=== PATIENT | female | born 1960 | race Caucasian/White ===

== ENCOUNTER 2024-06-09 13:35 | Outpatient (AMB) | payer MEDICARE, MEDICAID, SELFPAY ==
--- NOTE | 2024-06-09 13:58 | PD.ORTHCLVIS ---
Vital signs 06/09/24 13:59 Height 1.68 m Height Method Stated Weight 65.5 kg Weight Measurement Method Standing Scale BMI 23.2 Respiration 18 Temp 97.0 F Temp Source Temporal Artery Scan Med/Allergies Allergies & Medications Allergies triamcinolone [From Kenalog] Allergy (Severe, Verified 06/09/24 14:00) Palpitations Medication Reconciliation acetaminophen 500 mg tablet 1,000 mg PO Q8H PRN Pain 04/09/24 [History Confirmed 06/09/24] atorvastatin 20 mg tablet 20 mg PO QPM 04/09/24 [History Confirmed 06/09/24] folic acid 1 mg tablet 1 mg PO BID 04/09/24 [History Confirmed 06/09/24] magnesium citrate 100 mg tablet 400 mg PO HS 04/09/24 [History Confirmed 06/09/24] metoprolol succinate 50 mg capsule sprinkle, ext. release 24 hr 50 mg PO QDAY 04/09/24 [History Confirmed 06/09/24] prednisone 1 mg tablet 2 mg PO QDAY 04/09/24 [History Confirmed 06/09/24] acetaminophen 500 mg tablet (Acetaminophen Extra Strength) 1,000 mg (2 x 500 mg) PO Q6H PRN pain #90 tabs 04/13/24 [Rx Confirmed 06/09/24] aspirin 81 mg tablet,delayed release 81 mg PO BID #60 tabs 04/13/24 [Rx Confirmed 06/09/24] doxycycline hyclate 100 mg tablet 100 mg PO BID #14 tabs 04/13/24 [Rx Confirmed 06/09/24] oxycodone 5 mg tablet 5 mg PO Q6H PRN pain #28 tabs 04/13/24 [Rx Confirmed 06/09/24] pregabalin 75 mg capsule 75 mg PO BID #45 caps 04/13/24 [Rx Confirmed 06/09/24] sennosides 8.6 mg-docusate sodium 50 mg tablet (Senna-S) 1 tab-cap PO QDAY #30 tabs 04/13/24 [Rx Confirmed 06/09/24] cyclobenzaprine 5 mg tablet 5 mg PO QHS PRN muscle spasm #30 tabs 05/01/24 [Rx Confirmed 06/09/24] certolizumab pegol 200 mg/mL subcutaneous syringe kit (Cimzia) mg subcut 06/09/24 [History Confirmed 06/09/24] oxycodone 5 mg tablet 5 mg PO Q6H PRN pain #28 tabs 06/09/24 [Rx] Subjective Visit Visit for: follow up visit Immunization / Flu Flu Vaccine in the Last 12 Months: No Flu Vaccine Exclusion Criteria: No Exclusion Criteria History of Present Illness Chief complaint: FOLLOW UP ON TKA Patient is 6-weeks status post right Total knee replacement. She is doing well. She has minimal pain. The incision is completely healed. She is doing well. Personal History Occupation: DISABLED Pain Pain level (0-10): 7 Pain duration: COMES AND GOES Pain quality: sharp, dull and aching Ambulatory data Ambulatory device: none Treatments Improvement with previous injections: No Improvement with PT: No Improvement with NSAIDS: n/a Review of Systems Review of Systems: All systems negative unless otherwise noted in HPI. Exam Exam Patient is in no acute distress and is cooperative with the examination today. Patient has a normal mood and affect. Breathing is nonlabored. In no respiratory distress. Bilateral extremities were evaluated and demonstrates sensation intact to light touch. Palpable pedal pulses are present. No significant edema is present. Right knee incisions clean dry intact. Range of motion is 0 to 95 degrees The left knee has ROM from 5-80 degrees. It is very tender medially and laterally. The knee feels stable varus valgus stress as well as AP translation X-rays of the left knee demonstrates complete obliteration of the joint space both medial and laterally. She does have varus deformity. There are significant osteophytes. Assessment and Plan Problem List (1) Bilateral knee pain: Status: Acute Plan: Patient is doing well status post right total knee replacement. We will have her follow-up in approximately 4 weeks. (2) Rheumatoid arthritis flare: Status: Acute Plan: Patient is a 64-year-old female with bilateral knee rheumatoid arthritis status post right total knee replacement. Her left knee is actually impacting her quality life and happiness. She would like to get her left knee replaced as she did well with her right. We would have to Time the surgery around her infusion just like we did last time. I do think that surgery is a reasonable option as she is failed anti-inflammatories, rheumatoid medications, and injections The nature and purpose of the total knee replacement, alternative method(s) of treatment, the material risks involved, and the possibility of complications were fully explained to the patient. The patient does NOT have any of the following contraindications to TKA: - Active infection of the knee joint, OR - Active systemic bacteremia, OR - Active skin infection or open wound at surgical site, OR - Neuropathic arthritis, OR - Severe, rapidly progressive neurological disease, OR - Severe medical condition that makes risks of surgery outweigh the potential benefit The patient was told the most common risks and complications associated with a total knee replacement include, but are not limited to: blood clots in the leg, fatal pulmonary embolism, dislocation of the prosthesis, intraoperative and postoperative fractures of the femur or tibia, infection, failure of the prosthesis or grafting materials, complications from anesthesia, reactions to blood transfusions, postoperative leg length inequality, instability of the knee replacement, nerve damage or injury, vascular injury, delayed wound healing, infection, other injury or even . In addition, there are risks associated with anesthesia given during this operation. Also, the patient was told that after undergoing a total knee replacement there may still be persistent pain or disability. The patient was informed that the success of this operation in part depends upon the mechanical devices which are going to be implanted and that these devices can fail or malfunction, and may need to be repaired or replaced and there are no guarantees as to the longevity of this device or its parts and that it or its parts could fail prematurely. The patient was also notified that during the course of surgery, there may be a need to use bone graft from donors, and that any bone graft used will be carefully screened for communicable diseases, including AIDS, hepatitis, Deshaun-Creutzfeldt, or other diseases, but despite the screening procedures, there is a small chance that they could contract one of these diseases. Finally, the patient was asked to follow completely and fully with all advice and recommended treatments, and that recovery and ultimate outcome are affected by their compliance with recommended treatment. We discussed the risks, benefits and treatment alternatives, and the patient is interested in proceeding with surgery. We will try to set this up as expeditiously as possible. Advanced Care Planning Discussion Advance care planning discussed with:: patient Past Medical History Past Medical History Have you ever been diagnosed with any of the following: Neurological Problems Seizures: No Cardiology Problems Myocardial Infarction: No Cardiac Arrhythmia: No Atrial Fibrillation: No Angina: No Heart Murmur: No Coronary Artery Disease: No Atherosclerotic Heart Disease: No Peripheral Vascular Disease: No Hypercholesterolemia: No Aneurysm: No Congestive Heart Failure: No Congenital Heart Disease: No Valvular Heart Disease: No Rheumatic Fever: No Cardiomyopathy: No Edema: No Pericarditis: No Cellulitis: No Deep Vein Thrombosis: No Hypertension: No Hypotension: No Varicose Veins: No Respiratory Problems Chronic Obstructive Pulmonary Disease (COPD): No Smoking: No Smoking Exposure: No Stomache/Intestinal Problems Cirrhosis: No Pancreatitis: No Celiac Disease: No Gall Bladder Disease: No Gastrointestinal Bleed: No Esophageal Varices: No Dowling's Esophagus: No Colitis: No Ulcerative Colitis: No Diverticulitis: No Diverticulosis: No Ulcer: No Irritable Bowel: No Crohn's Disease: No Obstructive Bowel: No Hiatal Hernia: No Hemorrhoids: No Gastroesophageal Reflux Disease: No Obesity: No Genital/Urinary Problems Renal Disease: No Reproductive Problems Previous Pregnancies: Yes Musculoskeletal Problems Rheumatoid Arthritis: Yes Carpal Tunnel Syndrome: No Head,Eye,Nose,Throat Problems Cataracts: No Endocrine Problems Diabetes Mellitus Type 1: No Diabetes Mellitus Type 2: No Hypoglycemia: No [place]'s Syndrome: No [place]'s Disease: No Hyperthyroidism: No Hypothyroidism: No Parathyroid Disease: No Pituitary Disease: No Systemic Lupus Erythematosus: No Syndrome of Inappropriate Antidiuretic Hormone: No Adrenal Disease: No Graves' Disease: No Blood Problems Anemia: No Leukemia: No Hemophilia: No Thalassemia: No Sickle Cell Disease: No Clotting Problems: No Psychologic Problems Anxiety: Yes Other Problems Hospitalization: No Shingles: No Falls: No Blood Transfusions: No Blood Transfusion Reaction: No Anesthesia Reactions: No Organ Transplant: No Chemotherapy: No Radiation Therapy: No Hyperbaric Therapy: No MRSA: No VRSA: No Vancomycin-Resistant Enterococci: No Chicken Pox: Yes Cancer: Yes Surgical History Hysterectomy: No Pacemaker: No Thyroidectomy: No
[2024-06-09 13:59] VITALS: RESP 18; TEMP 36.1; BMI 23.2
== END 2024-06-09 14:18 | disposition home or self-care (01) ==
LOC: HODSRG 13:35
PROVIDERS: PCP Internal Medicine Rheumatology; Referring Provider Internal Medicine Rheumatology; Supervising Provider Orthopaedic Surgery Adult Reconstructive Orthopaedic Surgery; Visit Provider Orthopaedic Surgery Adult Reconstructive Orthopaedic Surgery
DX: M25.562 Pain in left knee (principal); M25.561 Pain in right knee; Z96.651 Presence of right artificial knee joint; M06.862 Other specified rheumatoid arthritis, left knee; M06.861 Other specified rheumatoid arthritis, right knee
CPT/HCPCS: 99213; G0463

== ENCOUNTER 2024-07-03 13:37 | Outpatient (AMB) | payer MEDICARE, MEDICAID, SELFPAY ==
[2024-07-03 14:12] VITALS: BP 142/78; PULSE 74; RESP 18; TEMP 35.8; O2SAT 97; BMI 24.0
--- NOTE | 2024-07-03 14:12 | ORTHONT_ITS ---
Vital signs 07/03/24 14:12 Height 1.68 m Height Method Stated Weight 67.784 kg Weight Measurement Method Standing Scale BMI 24.0 BP 142/78 H Blood Pressure Source Automatic Cuff Blood Pressure Location Right Upper Arm Position Sitting Respiration 18 Pulse 74 Pulse Source Monitor Temp 96.5 F L Temp Source Temporal Artery Scan Pulse Oximetry (%) 97 Oxygen Delivery Method Room Air Med/Allergies Allergies & Medications Allergies triamcinolone [From Kenalog] Allergy (Severe, Verified 07/03/24 14:13) Palpitations Medication Reconciliation acetaminophen 500 mg tablet 1,000 mg PO Q8H PRN Pain 04/09/24 [History Confirmed 07/03/24] atorvastatin 20 mg tablet 20 mg PO QPM 04/09/24 [History Confirmed 07/03/24] folic acid 1 mg tablet 1 mg PO BID 04/09/24 [History Confirmed 07/03/24] magnesium citrate 100 mg tablet 400 mg PO HS 04/09/24 [History Confirmed 07/03/24] metoprolol succinate 50 mg capsule sprinkle, ext. release 24 hr 50 mg PO QDAY 04/09/24 [History Confirmed 07/03/24] prednisone 1 mg tablet 2 mg PO QDAY 04/09/24 [History Confirmed 07/03/24] acetaminophen 500 mg tablet (Acetaminophen Extra Strength) 1,000 mg (2 x 500 mg) PO Q6H PRN pain #90 tabs 04/13/24 [Rx Confirmed 07/03/24] aspirin 81 mg tablet,delayed release 81 mg PO BID #60 tabs 04/13/24 [Rx Confirmed 07/03/24] doxycycline hyclate 100 mg tablet 100 mg PO BID #14 tabs 04/13/24 [Rx Confirmed 07/03/24] oxycodone 5 mg tablet 5 mg PO Q6H PRN pain #28 tabs 04/13/24 [Rx Confirmed 07/03/24] pregabalin 75 mg capsule 75 mg PO BID #45 caps 04/13/24 [Rx Confirmed 07/03/24] sennosides 8.6 mg-docusate sodium 50 mg tablet (Senna-S) 1 tab-cap PO QDAY #30 tabs 04/13/24 [Rx Confirmed 07/03/24] cyclobenzaprine 5 mg tablet 5 mg PO QHS PRN muscle spasm #30 tabs 05/01/24 [Rx Confirmed 07/03/24] certolizumab pegol 200 mg/mL subcutaneous syringe kit (Cimzia) mg subcut 06/09/24 [History Confirmed 07/03/24] oxycodone 5 mg tablet 5 mg PO Q6H PRN pain #28 tabs 06/09/24 [Rx Confirmed 07/03/24] Subjective Visit Visit for: follow up visit Immunization / Flu Flu Vaccine in the Last 12 Months: No Flu Vaccine Exclusion Criteria: No Exclusion Criteria History of Present Illness Chief complaint: FOLLOW UP ON TKA Patient is 6-weeks status post right Total knee replacement. She is doing well. She has minimal pain. The incision is completely healed. She is doing well. Personal History Occupation: DISABLED Pain Pain level (0-10): 8 Pain duration: CONSTANT Pain location: inside (medial) Pain quality: aching Pain timing: night and increases with activity Ambulatory data Ambulatory device: none Treatments Improvement with previous injections: No Improvement with PT: No Improvement with NSAIDS: no Review of Systems Review of Systems: All systems negative unless otherwise noted in HPI. Exam Exam Patient is in no acute distress and is cooperative with the examination today. Patient has a normal mood and affect. Breathing is nonlabored. In no respiratory distress. Bilateral extremities were evaluated and demonstrates sensation intact to light touch. Palpable pedal pulses are present. No significant edema is present. Right knee incisions clean dry intact. Range of motion is 0 to 95 degrees The left knee has ROM from 5-80 degrees. It is very tender medially and laterally. The knee feels stable varus valgus stress as well as AP translation X-rays of the left knee demonstrates complete obliteration of the joint space both medial and laterally. She does have varus deformity. There are sign ificant osteophytes. Assessment and Plan Problem List (1) Bilateral knee pain: Status: Acute Plan: Patient is doing well status post right total knee replacement. We will have her follow-up in approximately 4 weeks. (2) Rheumatoid arthritis flare: Status: Acute Plan: Patient is a 64-year-old female with bilateral knee rheumatoid arthritis status post right total knee replacement. Her left knee is actually impacting her quality life and happiness. She would like to get her left knee replaced as she did well with her right. We would have to Time the surgery around her infusion just like we did last time. I do think that surgery is a reasonable option as she is failed anti-inflammatories, rheumatoid medications, and injections The nature and purpose of the total knee replacement, alternative method(s) of treatment, the material risks involved, and the possibility of complications were fully explained to the patient. The patient does NOT have any of the following contraindications to TKA: - Active infection of the knee joint, OR - Active systemic bacteremia, OR - Active skin infection or open wound at surgical site, OR - Neuropathic arthritis, OR - Severe, rapidly progressive neurological disease, OR - Severe medical condition that makes risks of surgery outweigh the potential benefit The patient was told the most common risks and complications associated with a total knee replacement include, but are not limited to: blood clots in the leg, fatal pulmonary embolism, dislocation of the prosthesis, intraoperative and postoperative fractures of the femur or tibia, infection, failure of the prosthesis or grafting materials, complications from anesthesia, reactions to blood transfusions, postoperative leg length inequality, instability of the knee replacement, nerve damage or injury, vascular injury, delayed wound healing, infection, other injury or even . In addition, there are risks associated with anesthesia given during this operation. Also, the patient was told that after undergoing a total knee replacement there may still be persistent pain or disability. The patient was informed that the success of this operation in part depends upon the mechanical devices which are going to be implanted and that these devices can fail or malfunction, and may need to be repaired or replaced and there are no guarantees as to the longevity of this device or its parts and that it or its parts could fail prematurely. The patient was also notified that during the course of surgery, there may be a need to use bone graft from donors, and that any bone graft used will be carefully screened for communicable diseases, including AIDS, hepatitis, Deshaun-Creutzfeldt, or other diseases, but despite the screening procedures, there is a small chance that they could contract one of these diseases. Finally, the patient was asked to follow completely and fully with all advice and recommended treatments, and that recovery and ultimate outcome are affected by their compliance with recommended treatment. We discussed the risks, benefits and treatment alternatives, and the patient is interested in proceeding with surgery. We will try to set this up as expeditiously as possible. Advanced Care Planning Discussion Advance care planning discussed with:: patient Office Procedures GNS Level of Care Nursing/Assessment Patient Status: Established Patient Nursing Assessment/Reassesment: Medication Reconciliation, Update PMH in EMR and Vital Signs Coordination of Care: Complex Care and Chronic Disease 1-5, Education Complex Pt/Fam, Consent,records obtained, informed consent, 1 Ins Authorization, Results/Orders obtained and Staff clarify orders Established Patient Charge Established Patient Point Assignment: 110 Established Patient Point Charge: Level 3 (80-115) Past Medical History Past Medical History Have you ever been diagnosed with any of the following: Neurological Problems Seizures: No Cardiology Problems Myocardial Infarction: No Cardiac Arrhythmia: No Atrial Fibrillation: No Angina: No Heart Murmur: No Coronary Artery Disease: No Atherosclerotic Heart Disease: No Peripheral Vascular Disease: No Hypercholesterolemia: No Aneurysm: No Congestive Heart Failure: No Congenital Heart Disease: No Valvular Heart Disease: No Rheumatic Fever: No Cardiomyopathy: No Edema: No Pericarditis: No Cellulitis: No Deep Vein Thrombosis: No Hypertension: No Hypotension: No Varicose Veins: No Respiratory Problems Chronic Obstructive Pulmonary Disease (COPD): No Smoking: No Smoking Exposure: No Stomache/Intestinal Problems Cirrhosis: No Pancreatitis: No Celiac Disease: No Gall Bladder Disease: No Gastrointestinal Bleed: No Esophageal Varices: No Dowling's Esophagus: No Colitis: No Ulcerative Colitis: No Diverticulitis: No Diverticulosis: No Ulcer: No Irritable Bowel: No Crohn's Disease: No Obstructive Bowel: No Hiatal Hernia: No Hemorrhoids: No Gastroesophageal Reflux Disease: No Obesity: No Genital/Urinary Problems Renal Disease: No Reproductive Problems Previous Pregnancies: Yes Musculoskeletal Problems Rheumatoid Arthritis: Yes Carpal Tunnel Syndrome: No Head,Eye,Nose,Throat Problems Cataracts: No Endocrine Problems Diabetes Mellitus Type 1: No Diabetes Mellitus Type 2: No Hypoglycemia: No [place]'s Syndrome: No [place]'s Disease: No Hyperthyroidism: No Hypothyroidism: No Parathyroid Disease: No Pituitary Disease: No Systemic Lupus Erythematosus: No Syndrome of Inappropriate Antidiuretic Hormone: No Adrenal Disease: No Graves' Disease: No Blood Problems Anemia: No Leukemia: No Hemophilia: No Thalassemia: No Sickle Cell Disease: No Clotting Problems: No Psychologic Problems Anxiety: Yes Other Problems Hospitalization: No Shingles: No Falls: No Blood Transfusions: No Blood Transfusion Reaction: No Anesthesia Reactions: No Organ Transplant: No Chemotherapy: No Radiation Therapy: No Hyperbaric Therapy: No MRSA: No VRSA: No Vancomycin-Resistant Enterococci: No Chicken Pox: Yes Cancer: Yes Surgical History Hysterectomy: No Pacemaker: No Thyroidectomy: No
== END 2024-07-03 14:35 | disposition home or self-care (01) ==
LOC: HODSRG 13:37
PROVIDERS: PCP Internal Medicine Rheumatology; Referring Provider Internal Medicine Rheumatology; Supervising Provider Orthopaedic Surgery Adult Reconstructive Orthopaedic Surgery; Visit Provider Orthopaedic Surgery Adult Reconstructive Orthopaedic Surgery
DX: M25.562 Pain in left knee (principal); M25.561 Pain in right knee; M06.9 Rheumatoid arthritis, unspecified; Z96.651 Presence of right artificial knee joint
CPT/HCPCS: 99213; G0463

== ENCOUNTER 2024-07-22 09:53 | Observation (INO) | payer MEDICARE, MEDICAID, SELFPAY ==
--- NOTE | 2024-06-17 09:20 | PD.ADDPROG ---
Addendum Progress Note Addendum Date of report being addended: 06/17/24 Narrative: Jury Duty Note Lila Curtis had recent knee surgery and will need another one on the other side. Given that she is recovering from surgery, she will be unable to sit for a long period of time and attend jury duty for at least a year. Sincerely, hCai Hall MD
[2024-07-14 11:35] VITALS: BMI 24.3
[2024-07-14 12:28] LABS: Basophils # (Auto) 0.1 Thou/mm3 (0.0-0.2); Basophils % (Auto) 1 % (0-2.5); Eosinophils # (Auto) 0.2 Thou/mm3 (0.0-0.5); Eosinophils % (Auto) 3 % (0-10); Hematocrit 35.9 % (36.0-46.0); Hemoglobin 11.6 g/dL (12.0-16.0); Immature Granulocytes % (Auto) 0 % (0-0); Immature Granulocytes Auto 0.03 Thou/mm3 (0.00-0.00); Lymphocytes % (Auto) 23 % (10-50); Mean Corpuscular HGB Conc 32.3 g/dl (31.0-37.0); Mean Corpuscular Hemoglobin 27.4 pg (25.0-35.0); Mean Corpuscular Volume 85 fL (80-100); Monocytes # (Auto) 0.7 Thou/mm3 (0.0-0.8); Monocytes % (Auto) 8 % (0-12); Neutrophils # (Auto) 5.7 Thou/mm3 (1.8-7.7); Neutrophils % (Auto) 66 % (37-80); Nucleated Red Blood Cell % 0 /100 WBC (0); Platelet Count 349 Thou/mm3 (140-440); RDW Standard Deviation 42.6 fL (36.4-46.3); Red Blood Count 4.23 Miln/mm3 (4.00-5.20); White Blood Count 8.7 Thou/mm3 (3.6-11.0)
[2024-07-14 12:48] LABS: Anion Gap 6 (7-16); BUN/Creatinine Ratio 18 Ratio (12-20); Blood Urea Nitrogen 14 mg/dL (9-23); Calcium 9.7 mg/dL (8.3-10.6); Carbon Dioxide 29.2 mMol/L (20.0-31.0); Chloride 99 mMol/L (98-107); Creatinine (Component) 0.8 mg/dL (0.6-1.3); Estimated Creatinine Clearance 63.1 mL/min (>60); Glucose 96 mg/dL (74-106); Osmolality,Calculated 268 (275-295); Partial Thromboplastin Time 28.2 Seconds (22.0-36.0); Potassium 4.1 mMol/L (3.4-5.1); Prothrombin Time 11.2 Seconds (9.0-12.2); Sodium 134 mMol/L (136-145); eGFR > 60 See Note
[2024-07-20] VITALS (16 sets, daily range): BP systolic 116–155; BP diastolic 56–76; PULSE 66–84; RESP 12–20; TEMP 36–36.7; O2SAT 95–100; BMI 25.1; BMI 26.1
--- NOTE | 2024-07-20 07:27 | CHAP ---
Patient expressed gratitude for prayer before their procedure.
[2024-07-20] MEDS: ACETAMINOPHEN 325 MG TABLET 650 MG PO (08:49)
[2024-07-20] MEDS: MELOXICAM 7.5 MG TABLET PO (08:50)
[2024-07-20] MEDS: PREGABALIN 75 MG CAPSULE PO (08:50)
[2024-07-20] MEDS: RINGERS LACTATED 1000 ML 1,000 ML 20 ML IV (08:51)
--- NOTE | 2024-07-20 09:04 | ESOP_ITS ---
Date of Procedure 07/20/24 Pre Op Diagnosis left knee rheumatoid arthritis Post Op Diagnosis left knee rheumatoid arthritis Procedure left total knee replacement Findings full thickness cartilage loss and osteophytes Procedure Description Indication: The patient is a 64 year old who has a long history of left knee pain. X-rays show degenerative and rheumatoid arthritis involving the knee. Over the past several years the patient has had increasing pain, progressive limitation in function. He has failed conservative measures including activity modification, physical therapy, injections, anti-inflammatories, and assistive devices. After a lengthy discussion of the risks and benefits, the patient presents now for total knee replacement. The nature and purpose of the total knee replacement, alternative method(s) of treatment, the material risks involved, and the possibility of complications were fully explained to the patient. The patient was told the most common risks and complications associated with a total knee replacement include, but are not limited to blood clots in the leg, fatal pulmonary embolism, dislocation of the prosthesis, intraoperative and postoperative fractures of the femur or tibia, infection, failure of the prosthesis or grafting materials, complications from anesthesia, reactions to blood transfusions, postoperative leg length inequality, instability of the knee replacement, nerve damage or injury, vascular injury, delayed wound healing, infections, other injury or even . In addition, there are risks associated with anesthesia given during this operation, temporary or permanent numbness on the skin lateral to the incision can be a complication unique to total knee surgery, and kneeling can be painful after knee replacement surgery. Also, the patient was told that after undergoing a total knee replacement there may still be pain or disability. We discussed with the patient that we will be using a robot-assisted technology. We discussed that there is a possibility of converting to manual instrumentation. The patient was informed that the success of this operation in part depends upon the mechanical devices which are going to be implanted and that these devices can fail or malfunction, and may need to be repaired or replaced and there are no guarantees as to the longevity of this device or its part and that it or its parts could fail prematurely. Finally, the patient was asked to follow completely and fully with all advice and recommended treatments, and that recovery and ultimate outcome are affected by their compliance with recommended treatment. Surgical technique: Patient was marked and consented in the pre-operative area. The patient was brought to the operating room and placed on the operating table in a supine position. Prior to positioning, a timeout procedure was performed between the surgeon, the anesthesiologist, and the nursing staff where the patient and the operative side were identified and confirmed. After adequate general anesthetic was obtained, the left lower extremity was prepped and draped in the usual sterile fashion. A weight based dose of Cefazolin were administered within 1 hour prior to incision. The robot was preregistered and calirated before the incision. The extremity was exsanguinated with an esmarch badge and tourniquet inflated to 250mmHg. A midline incision was made. A median parapatellar arthrotomy was made. The patella was subluxed laterally. A medial release was performed to expose the medial tibia. A throrough synovectomy was performed. His femoral and tibial pins were placed through an intra incisional manner for both cases. Every effort was made to ensure that the distalmost aspect of the pin was hung in the second cortex. The arrays were then tightened several times to ensure that it was fixed for the remainder of the case. Both femoral and tibial checkpoints were then placed. We then went through the registration process of the bone. We then assessed the knee deformity and attempted to correct it. We also used the robot to aid in judging laxity in both extension and flexion. Final based on laxity and alignment we changed the preoperative assessment to obtain proper proper implant positioning and to correct deformity. Attention was then placed to the tibia. We made a tibial cut using the robot ensuring that both the MCL and the patella tendon were protected with retractors. We then went to the femur and made the posterior cut followed by the anterior cut and the anterior chamfer. The bone was then removed and we made a distal femur cut and a posterior chamfer cut. We verified all cuts. A trial reduction was performed with a size 4 femoral component and a size 4 keeled tibial component. The patella was cut and sized to a 33. The patella tracked centrally, and no lateral retinacular release was necessary. The trial implants were removed. The arrays, pins, and checkpoints were all removed. We performed a verification that all pins were removed. The cut bone surfaces were lavaged. A size 4 left femoral component, a size 4 keeled tibial component were impacted into position using 2 bags of palacos. A trial insert was placed and a size [33] patella were impacted into position. The knee was placed in extension until the cement hardened. The knee was felt to be well balanced in the sagittal and coronal plane. The final 4x10 mm cruciate- substituting articular insert was impacted into the tibial tray. The knee was brought out to full extension, flexed up to 120 degrees. It was stable to varus and valgus stress and appropriately balanced in flexion and extension. The wounds were copiously irrigated following deflation of tourniquet. The medial retinaculum was reapproximated with #1 vicryl and quill. The subcutaneous tissues were closed with 0 and 2-0 interrupted Vicryl. The skin was closed with 3-0 Monofilament V loc suture. A sterile dressing was applied. The patient was transferred to a bed and brought to recovery in stable condition. The patient tolerated the procedure well. There were no intraoperative complications. Sponge and needle counts were correct times 2. As the attending surgeon, Elie garces I was present and performed the entire operation. Grafts/Implants Size 4 CR Femur Size 4 Tibia 10mm poly CS 33mm patella 2 bags of palacos Anesthesia none and spinal Implants maxx al Pathology / specimen None Pathology comment: none Estimated Blood Loss 150 Surgeon Chai Hall MD Surgical Staff Operation Date: 07/20/24 09:45 <No data on this case meets the specified criteria>
--- NOTE | 2024-07-20 10:33 | XR_ITS ---
Examination: Left knee 2 views Technique one AP lateral left knee 2 views Exam date and time: July 20, 2004 1127 hours INDICATIONS: Postop knee replacement FINDINGS: Moderate osteopenia Total left knee arthroplasty. Satisfactory alignment No fracture IMPRESSION: Total left knee arthroplasty with satisfactory alignment
--- NOTE | 2024-07-20 11:00 | SUR.PHASEI ---
1100: Pt. AAOx4, vitals stable, breathing unlabored, no complaint of pain or nausea, dressing to left knee CDI, no active bleed noted, pt. able to wiggle bilateral feet, cap refill to bilateral feet less than 3 seconds, bilateral dorsalis pedis pulses strong and regular, report received from MD Fermin and Brian ZHAO.
--- NOTE | 2024-07-20 12:46 | SUR.PHASEII ---
pt resting comfortably in bed, breathing unlabored, dressing to left lower extremity clean, dry, and intact, report from Beverly ZHAO
[2024-07-20] MEDS: ONDANSETRON INJ 2 MG/ML INJ 2 ML 4 MG IV (13:03)
--- NOTE | 2024-07-20 13:19 | SUR.PHASEII ---
Report to Beverly ZHAO
[2024-07-20] MEDS: fentaNYL CIT INJ 50 mCg/ML AMP 2ML IV ×2 (13:42→14:16)
[2024-07-20] MEDS: METOCLOPRAMIDE INJ 5 MG/ML VIAL 2 ML 10 MG IVP (14:02)
--- NOTE | 2024-07-20 14:57 | SUR.PHASEII ---
1457: Pt. AAOx4, vitals stable, breathing unlabored, no complaint of pain or nausea, dressing to left knee CDI, no active bleed noted, pt. able to wiggle bilateral feet, cap refill to bilateral feet less than 3 seconds, bilateral dorsalis pedis pulses strong and regular, Pt. tolerated sips of water well and bites of crackers well, gave report to Alaina ZHAO prior to transfer to room 369. Family made aware of transfer to room, pt. transferred with all personal belongings.
[2024-07-20] MEDS: ACETAMINOPHEN 500 MG TABLET 1000 MG PO ×2 (15:22→20:28)
[2024-07-20] MEDS: ceFAZolin/D5W 1 GM IVPB 1 GM/50 ML BAG IV (16:19)
[2024-07-20] MEDS: oxyCODONE HCL 5 MG IR TAB PO (16:19)
[2024-07-20] MEDS: ASPIRIN EC 81 MG TABEC PO (20:28)
[2024-07-20] MEDS: oxyCODONE HCL 5 MG IR TAB 10 MG PO (22:44)
[2024-07-21] VITALS (7 sets, daily range): BP systolic 122–156; BP diastolic 55–74; PULSE 72–88; RESP 16–18; TEMP 36.1–36.4; O2SAT 92–96
[2024-07-21] MEDS: ACETAMINOPHEN 500 MG TABLET 1000 MG PO ×4 (03:37→21:06)
[2024-07-21] MEDS: oxyCODONE HCL 5 MG IR TAB 10 MG PO ×4 (04:06→22:50)
[2024-07-21] MEDS: ASPIRIN EC 81 MG TABEC PO ×2 (08:10→21:05)
[2024-07-21] MEDS: PANTOPRAZOLE INJ 40 MG VIAL IV (08:10)
--- NOTE | 2024-07-21 10:31 | PC.SS ---
Patient admitted for left knee replacement. Surgery completed yesterday. Patient has d/c orders for today. Daughter listed as point of contact. Orth office took care of any DME needed. No further d/c needs.
[2024-07-21] MEDS: KETOROLAC INJ 30 MG/ML VIAL 15 MG IVP (12:25)
--- NOTE | 2024-07-21 13:28 | CHAP ---
09:30 AM Visited by spiritual care volunteer Provided prayer for Patient.
[2024-07-21] MEDS: ATORVASTATIN CALCIUM 20 MG TABLET PO (21:05)
[2024-07-21] MEDS: FOLIC ACID 1 MG TABLET PO (21:06)
[2024-07-21] MEDS: METOPROLOL SUCCINATE XL 25 MG TABCR PO (21:06)
[2024-07-22] VITALS: BP 125/77; PULSE 82; RESP 18; TEMP 36.4; O2SAT 96
[2024-07-22 04:00] VITALS: BP 97/64; PULSE 73; RESP 18; TEMP 36.4; O2SAT 92
[2024-07-22] MEDS: oxyCODONE HCL 5 MG IR TAB 10 MG PO (05:59)
[2024-07-22 08:00] VITALS: BP 152/72; PULSE 90; RESP 16; TEMP 37; O2SAT 97
--- NOTE | 2024-07-22 08:29 | PC.SS ---
SS met with pt who is aware she will dc home today. Pt states she was still having pain yesterday. Pt states her transportation will be her at pm today. Bedside nurse, Shmuel is aware.
--- NOTE | 2024-07-22 09:53 | PD.ORTHPN ---
Subjective Subjective Brief History: left knee replacement Narrative: Patient is doing well today. She was unable to go home yesterday as she had a vasovagal episode when working with PT. She is doing better now. Exam Vital Signs Temp Pulse Resp BP Pulse Ox O2 Del Method 98.6 F 90 16 152/72 H 97 Room Air 07/22/24 08:00 07/22/24 08:00 07/22/24 08:00 07/22/24 08:00 07/22/24 08:00 07/22/24 08:00 Additional findings Additional findings: NAD SILT +EHL/FHL/PF/DF +DP/PT Dressing C/D/I Objective - Ortho Labs 07/14/24 12:10 07/14/24 12:10 Assessment & Plan Diagnosis (1) History of total left knee replacement: Status: Acute Assessment Additional comments: Patient is doing well s/p L TKA. She had to stay overnight as she failed PT due to her RA and a vasovagal episode with PT. She will likel be DC'd when she clears pt - ASA - WBAT - PT
[2024-07-22] MEDS: ASPIRIN EC 81 MG TABEC PO (09:54)
[2024-07-22] MEDS: ACETAMINOPHEN 500 MG TABLET 1000 MG PO (09:54)
[2024-07-22] MEDS: PANTOPRAZOLE INJ 40 MG VIAL IV (09:55)
--- NOTE | 2024-07-22 10:10 | PC.NURSE ---
per Dr. Hall, pt can discharge once she is cleared by PT. Per pt, daughter in-law will be her ride once discharged, but will be here around 1400 since she is working.
[2024-07-22 12:00] VITALS: BP 144/74; PULSE 87; RESP 17; TEMP 36.1; O2SAT 98
--- NOTE | 2024-07-23 16:11 | PD.ANESPROG ---
Documentation for date of: 07/23/24 POST ANESTHESIA NOTE: Patient had spinal anesthesia and L adductor canal block and MAC for L TKA on 07/20/24. I just called her number for follow up but no answer. Rakan Fermin MD Anesthesia Progress Note Progress Note Most recent Vital Signs: Last Vital Signs Temp 96.9 F 07/22/24 12:00 Pulse 87 07/22/24 12:00 Resp 17 07/22/24 12:00 BP 144/74 H 07/22/24 12:00 Pulse Ox 98 07/22/24 12:00 O2 Del Method Room Air 07/22/24 12:00
== END 2024-07-22 13:15 | disposition home or self-care (01) ==
LOC: S2EX 07-23 06:52 → S3SX 07-23 06:52
PROVIDERS: Admitting Provider Orthopaedic Surgery Adult Reconstructive Orthopaedic Surgery; PCP Internal Medicine Rheumatology; Referring Provider Orthopaedic Surgery Adult Reconstructive Orthopaedic Surgery; Visit Provider Orthopaedic Surgery Adult Reconstructive Orthopaedic Surgery
PROC: (CPT 27447; principal; 2024-07-20 09:45)
DX: M06.862 Other specified rheumatoid arthritis, left knee (principal); M17.12 Unilateral primary osteoarthritis, left knee; M25.762 Osteophyte, left knee
CPT/HCPCS: 27447; 20985; 36415; 73560; 80048; 85025; 85610; 85730; 96374; 97162; A4217; C1713; C1776; G0378; J0171; J0689; J0690; J1885; J2250; J2371; J2405; J2470; J2704; J2765; J2795; J3010; J3490; J7030; J7120; P9045; A4648; A4649; A9270

== ENCOUNTER 2024-08-07 11:15 | Outpatient (AMB) | payer MEDICARE, MEDICAID, SELFPAY ==
--- NOTE | 2024-08-07 11:08 | PD.ORTHTELE ---
Med/Allergies Allergies & Medications Allergies triamcinolone [From Kenalog] Allergy (Severe, Verified 07/20/24 08:48) Palpitations Medication Reconciliation atorvastatin 20 mg tablet 20 mg PO QPM 04/09/24 [History Confirmed 08/07/24] folic acid 1 mg tablet 1 mg PO BID 04/09/24 [History Confirmed 08/07/24] magnesium citrate 100 mg tablet 400 mg PO QPM 04/09/24 [History Confirmed 08/07/24] metoprolol succinate 50 mg capsule sprinkle, ext. release 24 hr 50 mg PO QPM 04/09/24 [History Confirmed 08/07/24] acetaminophen 500 mg tablet (Acetaminophen Extra Strength) 1,000 mg (2 x 500 mg) PO Q6H PRN pain #90 tabs 04/13/24 [Rx Confirmed 08/07/24] cholecalciferol (vitamin D3) 25 mcg (1,000 unit) capsule (Vitamin D3) 25 mcg PO BID 07/14/24 [History Confirmed 08/07/24] cranberry 500 mg capsule 500 mg PO BID 07/14/24 [History Confirmed 08/07/24] psyllium 1 tbsp PO QDAY 07/14/24 [History Confirmed 08/07/24] vitamin E03-pgzdozqpj factor 110 mg-0.5 mg capsule 1 cap PO QDAY 07/14/24 [History Confirmed 08/07/24] acetaminophen 500 mg tablet (Acetaminophen Extra Strength) 1,000 mg (2 x 500 mg) PO Q6H PRN pain #90 tabs 07/22/24 [Rx Confirmed 08/07/24] aspirin 81 mg tablet,delayed release 81 mg PO BID #60 tabs 07/22/24 [Rx Confirmed 08/07/24] doxycycline hyclate 100 mg tablet 100 mg PO BID #14 tabs 07/22/24 [Rx Confirmed 08/07/24] gabapentin 300 mg capsule 300 mg PO .qhs #30 caps 07/22/24 [Rx Confirmed 08/07/24] sennosides 8.6 mg-docusate sodium 50 mg tablet (Senna-S) 1 tab-cap PO QDAY #30 tabs 07/22/24 [Rx Confirmed 08/07/24] oxycodone 5 mg tablet 5 mg PO Q6H PRN pain #28 tabs 07/29/24 [Rx Confirmed 08/07/24] oxycodone 5 mg tablet 5 mg PO Q6H PRN pain #28 tabs 08/06/24 [Rx Confirmed 08/07/24] Subjective Visit Visit for: follow up visit, post op #2 and knee Immunization / Flu Flu Vaccine in the Last 12 Months: Yes Flu Vaccine Exclusion Criteria: Already Received History of Present Illness Chief complaint: TELEMED VIST POST OP Patient is doing well 2 weeks postop from a TKA. She has minimal pain and is working with PT Pain Pain level (0-10): 6 Pain duration: COMES AND GOES Pain location: anterior and posterior Pain quality: sharp, dull and aching Pain timing: increases with activity Associated signs & symptoms: numbness Ambulatory data Ambulatory device: cane Treatments Improvement with previous injections: No Improvement with PT: No Improvement with NSAIDS: n/a Review of Systems Review of Systems: All systems negative unless otherwise noted in HPI. Assessment and Plan Problem List (1) Bilateral knee pain: Status: Acute Plan: Patient is doing well status post right total knee replacement. We will have her follow-up in approximately 4 weeks. (2) Rheumatoid arthritis flare: Status: Acute Plan: Patient is a 64-year-old female with bilateral knee rheumatoid arthritis status post left total knee replacement. She is doing well and has no issues. She will see us in 4 weeks and should continue to take her DVT ppx. Advanced Care Planning Discussion Advance care planning discussed with:: patient Office Procedures GNS Level of Care Nursing/Assessment Patient Status: Established Patient Nursing Assessment/Reassesment: Medication Reconciliation, Update PMH in EMR and Vital Signs Coordination of Care: Complex Care and Chronic Disease 1-5, Education Complex Pt/Fam, Consent,records obtained, informed consent, Results/Orders obtained and Staff clarify orders Established Patient Charge Established Patient Point Assignment: 95 Telehealth Telemed Phone/Video with patient at home & Dr,PA,[employer]: Yes
== END 2024-08-07 11:19 | disposition home or self-care (01) ==
LOC: HODSRG 11:15
PROVIDERS: PCP Internal Medicine Rheumatology; Referring Provider Internal Medicine Rheumatology; Supervising Provider Orthopaedic Surgery Adult Reconstructive Orthopaedic Surgery; Visit Provider Orthopaedic Surgery Adult Reconstructive Orthopaedic Surgery
DX: M25.561 Pain in right knee (principal); M25.562 Pain in left knee; Z96.651 Presence of right artificial knee joint; M06.862 Other specified rheumatoid arthritis, left knee; M06.861 Other specified rheumatoid arthritis, right knee
CPT/HCPCS: 99212; G0463

== ENCOUNTER 2024-09-04 13:53 | Outpatient (AMB) | payer MEDICARE, MEDICAID, SELFPAY ==
[2024-09-04 14:17] VITALS: BP 123/80; PULSE 83; RESP 18; TEMP 36.7; O2SAT 97; BMI 25.8
--- NOTE | 2024-09-04 14:17 | PD.ORTHCLVIS ---
Vital signs 09/04/24 14:17 Height 1.62 m Height Method Stated Weight 67.812 kg Weight Measurement Method Standing Scale BMI 25.8 BP 123/80 Blood Pressure Source Automatic Cuff Blood Pressure Location Right Upper Arm Position Sitting Respiration 18 Pulse 83 Pulse Source Monitor Temp 98.0 F Temp Source Temporal Artery Scan Pulse Oximetry (%) 97 Oxygen Delivery Method Room Air Med/Allergies Allergies & Medications Allergies triamcinolone [From Kenalog] Allergy (Severe, Verified 09/04/24 14:18) Palpitations Medication Reconciliation atorvastatin 20 mg tablet 20 mg PO QPM 04/09/24 [History Confirmed 09/04/24] folic acid 1 mg tablet 1 mg PO BID 04/09/24 [History Confirmed 09/04/24] magnesium citrate 100 mg tablet 400 mg PO QPM 04/09/24 [History Confirmed 09/04/24] metoprolol succinate 50 mg capsule sprinkle, ext. release 24 hr 50 mg PO QPM 04/09/24 [History Confirmed 09/04/24] acetaminophen 500 mg tablet (Acetaminophen Extra Strength) 1,000 mg (2 x 500 mg) PO Q6H PRN pain #90 tabs 04/13/24 [Rx Confirmed 09/04/24] cholecalciferol (vitamin D3) 25 mcg (1,000 unit) capsule (Vitamin D3) 25 mcg PO BID 07/14/24 [History Confirmed 09/04/24] cranberry 500 mg capsule 500 mg PO BID 07/14/24 [History Confirmed 09/04/24] psyllium 1 tbsp PO QDAY 07/14/24 [History Confirmed 09/04/24] vitamin R96-ekignavfm factor 110 mg-0.5 mg capsule 1 cap PO QDAY 07/14/24 [History Confirmed 09/04/24] acetaminophen 500 mg tablet (Acetaminophen Extra Strength) 1,000 mg (2 x 500 mg) PO Q6H PRN pain #90 tabs 07/22/24 [Rx Confirmed 09/04/24] aspirin 81 mg tablet,delayed release 81 mg PO BID #60 tabs 07/22/24 [Rx Confirmed 09/04/24] doxycycline hyclate 100 mg tablet 100 mg PO BID #14 tabs 07/22/24 [Rx Confirmed 09/04/24] gabapentin 300 mg capsule 300 mg PO .qhs #30 caps 07/22/24 [Rx Confirmed 09/04/24] sennosides 8.6 mg-docusate sodium 50 mg tablet (Senna-S) 1 tab-cap PO QDAY #30 tabs 07/22/24 [Rx Confirmed 09/04/24] oxycodone 5 mg tablet 5 mg PO Q6H PRN pain #28 tabs 07/29/24 [Rx Confirmed 09/04/24] oxycodone 5 mg tablet 5 mg PO Q6H PRN pain #28 tabs 08/14/24 [Rx Confirmed 09/04/24] Exam Exam Patient is in no acute distress and is cooperative with the examination today. Patient has a normal mood and affect. Breathing is nonlabored. In no respiratory distress. Bilateral extremities were evaluated and demonstrates sensation intact to light touch. Palpable pedal pulses are present. No significant edema is present. Right knee incisions clean dry intact. Range of motion is 0 to 95 degrees The left knee has ROM from 5-80 degrees. It is very tender medially and laterally. The knee feels stable varus valgus stress as well as AP translation X-rays demonstrate bilateral total knee replacements in good alignment position Assessment and Plan Problem List (1) Bilateral knee pain: Status: Acute Plan: Patient is doing well status post right total knee replacement. We will see her back in 6 months (2) Rheumatoid arthritis flare: Status: Acute Plan: Patient is doing well status post right total knee replacement. We will see Back in approximately 6 weeks for routine follow-up Advanced Care Planning Discussion Advance care planning discussed with:: patient Office Procedures GNS Level of Care Nursing/Assessment Patient Status: Established Patient Nursing Assessment/Reassesment: Medication Reconciliation, Update PMH in EMR and Vital Signs Coordination of Care: Complex Care and Chronic Disease 1-5, Education Complex Pt/Fam, Consent,records obtained, informed consent, Results/Orders obtained and Staff clarify orders Established Patient Charge Established Patient Point Assignment: 95 Established Patient Point Charge: EP Level 3 (80-115) MA Intake Visit Data Collection New Patient or Established: Established Patient (seen at [facility] within 3 years) Reason for Visit:: 6 WEEK POST OP Seen by Clinical Staff ONLY (RN/MA): No Verbal consent obtained for Telemed visit?: No Car Distributor Required: No PCP or OBGYN visit in last 3 months: Yes Hx Now: No Do You Feel Safe at Home: Yes Authorities Contacted: N/A Questionairres Past Medical History Past Medical History Have you ever been diagnosed with any of the following: Neurological Problems Seizures: No Migraine: Yes Cardiology Problems Myocardial Infarction: No Cardiac Arrhythmia: No Atrial Fibrillation: No Angina: No Heart Murmur: No Coronary Artery Disease: No Atherosclerotic Heart Disease: No Peripheral Vascular Disease: No Hypercholesterolemia: Yes Aneurysm: No Congestive Heart Failure: No Congenital Heart Disease: No Valvular Heart Disease: No Rheumatic Fever: No Cardiomyopathy: No Edema: No Pericarditis: No Cellulitis: No Deep Vein Thrombosis: No Hypertension: Yes Hypotension: No Varicose Veins: No Respiratory Problems Chronic Obstructive Pulmonary Disease (COPD): No Smoking: No Smoking Exposure: No Stomache/Intestinal Problems Hepatitis: No Cirrhosis: No Pancreatitis: No Celiac Disease: No Gall Bladder Disease: No Gastrointestinal Bleed: No Esophageal Varices: No Dowling's Esophagus: No Colitis: No Ulcerative Colitis: No Diverticulitis: No Diverticulosis: No Ulcer: No Irritable Bowel: No Crohn's Disease: No Obstructive Bowel: No Hiatal Hernia: No Hemorrhoids: No Gastroesophageal Reflux Disease: No Obesity: No Genital/Urinary Problems Renal Disease: No Reproductive Problems Previous Pregnancies: Yes Musculoskeletal Problems Rheumatoid Arthritis: Yes Carpal Tunnel Syndrome: No Head,Eye,Nose,Throat Problems Cataracts: No Endocrine Problems Diabetes Mellitus Type 1: No Diabetes Mellitus Type 2: No Hypoglycemia: No Lynx's Syndrome: No Greenbrier's Disease: No Hyperthyroidism: No Hypothyroidism: No Parathyroid Disease: No Pituitary Disease: No Systemic Lupus Erythematosus: No Syndrome of Inappropriate Antidiuretic Hormone: No Adrenal Disease: No Graves' Disease: No Blood Problems Anemia: Yes (in the past) Leukemia: No Hemophilia: No Thalassemia: No Sickle Cell Disease: No Clotting Problems: No Psychologic Problems Anxiety: Yes Other Problems Hospitalization: No Shingles: No Falls: No Blood Transfusions: No Blood Transfusion Reaction: No Anesthesia Reactions: No Organ Transplant: No Chemotherapy: No Radiation Therapy: No Hyperbaric Therapy: No MRSA: No VRSA: No Vancomycin-Resistant Enterococci: No Chicken Pox: Yes Cancer: Yes Surgical History Hysterectomy: No Pacemaker: No Thyroidectomy: No Subjective Visit Visit for: follow up visit, post op #2 and knee Immunization / Flu Flu Vaccine in the Last 12 Months: Yes Flu Vaccine Exclusion Criteria: Already Received History of Present Illness Chief complaint: 6 WEEK POST OP Donna is 6 weeks out from a total knee replacement. I did her contralateral side and she is happy. She is back on her rheumatoid medication Pain Pain level (0-10): 0 Associated signs & symptoms: none Ambulatory data Ambulatory device: none Treatments Improvement with previous injections: No Improvement with PT: No Improvement with NSAIDS: no Review of Systems Review of Systems: All systems negative unless otherwise noted in HPI.
== END 2024-09-04 14:31 | disposition home or self-care (01) ==
PROVIDERS: PCP Internal Medicine Rheumatology; Referring Provider Internal Medicine Rheumatology; Supervising Provider Orthopaedic Surgery Adult Reconstructive Orthopaedic Surgery; Visit Provider Orthopaedic Surgery Adult Reconstructive Orthopaedic Surgery
DX: M25.562 Pain in left knee (principal); M25.561 Pain in right knee; M06.9 Rheumatoid arthritis, unspecified; Z96.651 Presence of right artificial knee joint; I10 Essential (primary) hypertension; E78.00 Pure hypercholesterolemia, unspecified
CPT/HCPCS: 73564; 99213; G0463

== ENCOUNTER → 2024-09-04 | Outpatient (CLI) | payer MEDICARE, MEDICAID, SELFPAY ==
--- NOTE | 2024-09-04 13:35 | XR_ITS ---
Examination: Bilateral knees 2 views Right lateral knee left lateral knee 2 views Bilateral axial knees single view Technique: Bilateral AP knees standing single view, bilateral PA knees standing single view 30 degrees flexion Staining right lateral knee left lateral knee 2 views Bilateral axial knees single view total 5 views Exam date and time: September 04, 2024 at 1345 hrs. Indications: Status post total right knee arthroplasty March 2024 left knee arthroplasty July 2024 Findings: Moderate osteopenia No fractures Bilateral total knee arthroplasties with satisfactory alignment No loosening of the prosthetic components Impression: Bilateral total knee arthroplasties with satisfactory alignment
== END | disposition home or self-care (01) ==
PROVIDERS: PCP Internal Medicine Rheumatology; Referring Provider Orthopaedic Surgery Adult Reconstructive Orthopaedic Surgery; Visit Provider Orthopaedic Surgery Adult Reconstructive Orthopaedic Surgery
DX: M25.561 Pain in right knee (principal); Z96.653 Presence of artificial knee joint, bilateral
CPT/HCPCS: 73564

== ENCOUNTER 2024-10-20 14:38 | Outpatient (AMB) | payer MEDICARE, MEDICAID, SELFPAY ==
--- NOTE | 2024-10-20 14:41 | PD.ORTHCLVIS ---
Vital signs 10/20/24 14:42 Height 1.62 m Height Method Stated Weight 70.931 kg Weight Measurement Method Standing Scale BMI 27.0 BP 123/80 Blood Pressure Source Automatic Cuff Blood Pressure Location Left Upper Arm Position Sitting Respiration 18 Pulse 83 Pulse Source Monitor Temp 97.7 F Temp Source Temporal Artery Scan Pulse Oximetry (%) 98 Oxygen Delivery Method Room Air Med/Allergies Allergies & Medications Allergies triamcinolone (From Kenalog) Allergy (Severe, Verified 10/20/24 14:43) Palpitations Medication Reconciliation atorvastatin 20 mg tablet 20 mg PO QPM 04/09/24 [History Confirmed 10/20/24] folic acid 1 mg tablet 1 mg PO BID 04/09/24 [History Confirmed 10/20/24] magnesium citrate 100 mg tablet 400 mg PO QPM 04/09/24 [History Confirmed 10/20/24] metoprolol succinate 50 mg capsule sprinkle, ext. release 24 hr 50 mg PO QPM 04/09/24 [History Confirmed 10/20/24] acetaminophen 500 mg tablet (Acetaminophen Extra Strength) 1,000 mg (2 x 500 mg) PO Q6H PRN pain #90 tabs 04/13/24 [Rx Confirmed 10/20/24] cholecalciferol (vitamin D3) 25 mcg (1,000 unit) capsule (Vitamin D3) 25 mcg PO BID 07/14/24 [History Confirmed 10/20/24] cranberry 500 mg capsule 500 mg PO BID 07/14/24 [History Confirmed 10/20/24] psyllium 1 tbsp PO QDAY 07/14/24 [History Confirmed 10/20/24] vitamin J85-pytybecjp factor 110 mg-0.5 mg capsule 1 cap PO QDAY 07/14/24 [History Confirmed 10/20/24] aspirin 81 mg tablet,delayed release 81 mg PO BID #60 tabs 07/22/24 [Rx Confirmed 10/20/24] doxycycline hyclate 100 mg tablet 100 mg PO BID #14 tabs 07/22/24 [Rx Confirmed 10/20/24] gabapentin 300 mg capsule 300 mg PO .qhs #30 caps 07/22/24 [Rx Confirmed 10/20/24] sennosides 8.6 mg-docusate sodium 50 mg tablet (Senna-S) 1 tab-cap PO QDAY #30 tabs 07/22/24 [Rx Confirmed 10/20/24] oxycodone 5 mg tablet 5 mg PO Q6H PRN pain #28 tabs 07/29/24 [Rx Confirmed 10/20/24] oxycodone 5 mg tablet 5 mg PO Q6H PRN pain #28 tabs 08/14/24 [Rx Confirmed 10/20/24] acetaminophen 500 mg tablet (Acetaminophen Extra Strength) 1,000 mg (2 x 500 mg) PO Q6H PRN pain #90 tabs 10/20/24 [Rx] Exam Exam Patient is in no acute distress and is cooperative with the examination today. Patient has a normal mood and affect. Breathing is nonlabored. In no respiratory distress. Bilateral extremities were evaluated and demonstrates sensation intact to light touch. Palpable pedal pulses are present. No significant edema is present. Bilateral knee incisions are clean dry intact. Range of motion is 0 to 100 degrees. X-rays demonstrate bilateral total knee replacements in good alignment position Assessment and Plan Problem List (1) Bilateral knee pain: Status: Acute Plan: Patient is doing well status post right total knee replacement. We will see her back in 6 months (2) Rheumatoid arthritis flare: Status: Acute Plan: Patient is doing well status post right total knee replacement. Will see her back in approximately 3 months. She should continue another round of physical therapy. Advanced Care Planning Discussion Advance care planning discussed with:: patient Office Procedures GNS Level of Care Nursing/Assessment Patient Status: Established Patient Nursing Assessment/Reassesment: Medication Reconciliation, Update PMH in EMR and Vital Signs Coordination of Care: Complex Care and Chronic Disease 1-5, Education Complex Pt/Fam, Consent,records obtained, informed consent, Results/Orders obtained and Staff clarify orders Established Patient Charge Established Patient Point Assignment: 95 Established Patient Point Charge: EP Level 3 (80-115) MA Intake Visit Data Collection New Patient or Established: Established Patient (seen at [facility] within 3 years) Reason for Visit:: 6 WEEK F/U Seen by Clinical Staff ONLY (RN/MA): No Director Regulatory Affairs Required: No PCP or OBGYN visit in last 3 months: Yes Hx Now: No Do You Feel Safe at Home: Yes Authorities Contacted: N/A Questionairres Past Medical History Past Medical History Have you ever been diagnosed with any of the following: Neurological Problems Seizures: No Migraine: Yes Cardiology Problems Myocardial Infarction: No Cardiac Arrhythmia: No Atrial Fibrillation: No Angina: No Heart Murmur: No Coronary Artery Disease: No Atherosclerotic Heart Disease: No Peripheral Vascular Disease: No Hypercholesterolemia: Yes Aneurysm: No Congestive Heart Failure: No Congenital Heart Disease: No Valvular Heart Disease: No Rheumatic Fever: No Cardiomyopathy: No Edema: No Pericarditis: No Cellulitis: No Deep Vein Thrombosis: No Hypertension: Yes Hypotension: No Varicose Veins: No Respiratory Problems Chronic Obstructive Pulmonary Disease (COPD): No Smoking: No Smoking Exposure: No Stomache/Intestinal Problems Hepatitis: No Cirrhosis: No Pancreatitis: No Celiac Disease: No Gall Bladder Disease: No Gastrointestinal Bleed: No Esophageal Varices: No Dowling's Esophagus: No Colitis: No Ulcerative Colitis: No Diverticulitis: No Diverticulosis: No Ulcer: No Irritable Bowel: No Crohn's Disease: No Obstructive Bowel: No Hiatal Hernia: No Hemorrhoids: No Gastroesophageal Reflux Disease: No Obesity: No Genital/Urinary Problems Renal Disease: No Reproductive Problems Previous Pregnancies: Yes Musculoskeletal Problems Rheumatoid Arthritis: Yes Carpal Tunnel Syndrome: No Head,Eye,Nose,Throat Problems Cataracts: No Endocrine Problems Diabetes Mellitus Type 1: No Diabetes Mellitus Type 2: No Hypoglycemia: No Jenni's Syndrome: No Deshaun's Disease: No Hyperthyroidism: No Hypothyroidism: No Parathyroid Disease: No Pituitary Disease: No Systemic Lupus Erythematosus: No Syndrome of Inappropriate Antidiuretic Hormone: No Adrenal Disease: No Graves' Disease: No Blood Problems Anemia: Yes (in the past) Leukemia: No Hemophilia: No Thalassemia: No Sickle Cell Disease: No Clotting Problems: No Psychologic Problems Anxiety: Yes Other Problems Hospitalization: No Shingles: No Falls: No Blood Transfusions: No Blood Transfusion Reaction: No Anesthesia Reactions: No Organ Transplant: No Chemotherapy: No Radiation Therapy: No Hyperbaric Therapy: No MRSA: No VRSA: No Vancomycin-Resistant Enterococci: No Chicken Pox: Yes Cancer: Yes Surgical History Hysterectomy: No Pacemaker: No Thyroidectomy: No Subjective Visit Visit for: follow up visit Immunization / Flu Flu Vaccine in the Last 12 Months: No Flu Vaccine Exclusion Criteria: No Exclusion Criteria History of Present Illness Chief complaint: bilateral knee replacement Dnona is 6 weeks out from a total knee replacement. I did her contralateral side and she is happy. She is back on her rheumatoid medication. He is using no assistive device and is very happy with her knee Pain Pain level (0-10): 0 Associated signs & symptoms: none Ambulatory data Ambulatory device: none Treatments Improvement with previous injections: No Improvement with PT: No Improvement with NSAIDS: no Review of Systems Review of Systems: All systems negative unless otherwise noted in HPI.
[2024-10-20 14:42] VITALS: BP 123/80; PULSE 83; RESP 18; TEMP 36.5; O2SAT 98; BMI 27.0
== END 2024-10-20 14:50 | disposition home or self-care (01) ==
LOC: HODSRG 14:38
PROVIDERS: PCP Internal Medicine Rheumatology; Referring Provider Internal Medicine Rheumatology; Supervising Provider Orthopaedic Surgery Adult Reconstructive Orthopaedic Surgery; Visit Provider Orthopaedic Surgery Adult Reconstructive Orthopaedic Surgery
DX: M25.562 Pain in left knee (principal); M25.561 Pain in right knee; M06.9 Rheumatoid arthritis, unspecified; Z96.653 Presence of artificial knee joint, bilateral
CPT/HCPCS: 99213; G0463